=== PATIENT | male | born 1950 | race Caucasian/White ===

== ENCOUNTER 2024-08-06 08:59 | Outpatient (OUT) | payer OTHER, SELFPAY ==
--- OUTSIDE RECORDS SUMMARY | 2012-03-16 11:00 | XMS_ITS | Continuity of Care Document ---
Author Organization [facility] Address [address] [place] [address] Phone Care Team Providers Care Convalescent Sitter Name Role Phone Primitivo Lee Unavailable Unavailable Procedures Procedure Date FLU VACCINE, 3 YRS & >, IM OFFICE/OUTPATIENT VISIT, EST FLU VACCINE, 3 YRS & >, IM Advance Directives Directive Yes / No Effective Date File Name Resuscitation Not Answered N/A N/A Life Support Not Answered N/A N/A Intubation Not Answered N/A N/A Antibiotics Not Answered N/A N/A IV Fluid Support Not Answered N/A N/A Tube Feed Not Answered N/A N/A Other Directive N/A N/A WARNING:The information contained in this section is historical and is provided for information only and does not constitute a legal document or any assurance that the information is still accurate. Please verify the information with the minaya of the legal document before using it for clinical purposes. Encounters Encounter Description Practice Location Reason(s) For Visit Diagnoses Date Provider Providers Copied on Encounter OFFICE/OUTPATI ENT VISIT, EST [facility], [address], [place], [id number], [place] tel:[phone] [facility] Influenza Vaccine Debbie Fonseca. [address], [place], [id number], [place]. tel:[phone] Family History Family Member Type Diagnosis Age At Onset No Information Immunizations Vaccine Date Status Comments Flu (split) (3 yrs or older) administered Source: New Immunization Record Payers Payer name Insurance type Covered republican ID Authoriza tijazz(s) No Information Social History Type Description Quantity Date Captured Comments Alcohol Use Details Unknown Caffeine Use Details Unknown Tobacco Use Status No Information Smoking Status No Information Sex Male Sexual Orientation Straight or heterosexual Gender Identity Male Chief Complaint And Reason For Visit No Information Reason For Referral Reason For Referral No Information History Of Present Illness Encounter Date Complaint History Of Prese nt Illness No Information Functional Status Date Functional Assessmen t No Information Instructions Date Instruction Additional Infor mation No Information Assessments Type Assessment Date No Information Patient Care Teams Name Effective Dates (start - stop) Status Members No Information
--- OUTSIDE RECORDS SUMMARY | 2024-08-01 09:15 | XMS_ITS | Encounter Summary ---
Author Organization [facility] Address [address] [place] [address] Care Team Providers Care Maturity Checker Name Role Phone Arpan Seymour MD Primary Care Provider [phone] Arpan Seymour MD Unavailable Reason for Visit * Reason Comments Follow-up PAIN IN LEGS AND BUT T Encounter Details Date Type Department Care Team (Late st Contact Info) Description 08/01/2024 9:15 AM EDT Office Visit [facility] [address] [place] [address] Arpan Seymour MD [address] [place] [address] Degeneration of intervertebral disc of lumbar region with lower extremity pain (Primary Dx); Arthralgia, unspecified joint; Benign hypertension (CMS/HCC); Encounter for long-term current use of medication; Cerebrovascular disease, unspecified; Fatigue, unspecified type Social History Tobacco Use Types Packs/Day Years Used Date Smoking Tobacco: Former Cigarettes Smokeless Tobacco: Never Sex and Gender Information Value Date Recorded Sex Assigned at Not on file Legal Sex Male 7:20 PM EDT Gender Identity Not on file Sexual Orientation Not on file documented as of this encounter Last Filed Vital Signs Vital Sign Reading Time Taken Comments Blood Pressure 142/80 08/01/2024 9:22 AM EDT Pulse 85 08/01/2024 9:22 AM EDT Temperature 36.8 C (98.2 F) 08/01/2024 9:22 AM EDT Respiratory Rate 18 08/01/2024 9:22 AM EDT Oxygen Saturation 98% 08/01/2024 9:22 AM EDT Inhaled Oxygen Concentration - - Weight 84.8 kg (187 lb) 08/01/2024 9:22 AM EDT Height 175.3 cm (5' 9 ) 08/01/2024 9:22 AM EDT Body Mass Index 27.62 08/01/2024 9:22 AM EDT documented in this encounter Progress Notes * Arpan Seymour MD - 08/01/2024 10:00 AM EDTAssociated Problem(s): DDD (degenerative disc disease), lumbar Pain likely radicular and repeat x-ray. Treat with prednisone. May need PT. * Arpan Seymour MD - 08/01/2024 10:00 AM EDTAssociated Problem(s): Cerebrovascular disease, unspecified Continue lipitor. * Arpan Seymour MD - 08/01/2024 10:00 AM EDTAssociated Problem(s): Arthralgia Check CPK. * Arpan Seymour MD - 08/01/2024 10:00 AM EDTAssociated Problem(s): Benign hypertension (CMS/HCC) BP controlled and monitor PRN. Discussed DASH diet. * Arpan Seymour MD - 08/01/2024 9:15 AM EDT Images from the original note were not included. Subjective Patient ID: Reji Mcdonald is a 73 y.o. male who presents for Follow-up (PAIN IN LEGS AND BUTT). C/o pain in gluteal region and legs for months and getting worse. Pain in back legs and calves. Pain in gluteal region and radiates down legs. Denies low back pain. Pain with walking and standing. Pain worse after activity and at end of day. C/o cramping and ache but often numb and tingling. At times legs weak and hard to lift legs. Difficult to walk or climb stairs due to symptoms. Ultram with mild relief. Checking BP PRN and typically controlled. BP normal today. Taking medication daily and tolerating without side effects. On lipitor due to prior CVA. Review of Systems Constitutional: Negative for fatigue. Respiratory: Negative for cough, shortness of breath and wheezing. Cardiovascular: Negative for chest pain and palpitations. Gastrointestinal: Negative for abdominal pain, diarrhea, nausea and vomiting. Genitourinary: Negative for dysuria. Objective Physical Exam Constitutional: General: He is not in acute distress. Appearance: Normal appearance. HENT: Head: Normocephalic. Right Ear: Tympanic membrane and ear canal normal. Left Ear: Tympanic membrane and ear canal normal. Eyes: Extraocular Movements: Extraocular movements intact. Pupils: Pupils are equal, round, and reactive to light. Cardiovascular: Rate and Rhythm: Normal rate and regular rhythm. Heart sounds: No murmur heard. No friction rub. No gallop. Pulmonary: Breath sounds: Normal breath sounds. No wheezing, rhonchi or rales. Abdominal: General: Bowel sounds are normal. There is no distension. Palpations: Abdomen is soft. Tenderness: There is no abdominal tenderness. There is no guarding or rebound. Musculoskeletal: Left lower leg: No edema. Neurological: Mental Status: He is alert. Assessment/Plan Problem List Items Addressed This Visit Benign hypertension (CMS/HCC) BP controlled and monitor PRN. Discussed DASH diet. Relevant Orders Basic metabolic panel Cerebrovascular disease, unspecified Continue lipitor. Relevant Orders Lipid panel DDD (degenerative disc disease), lumbar - Primary Pain likely radicular and repeat x-ray. Treat with prednisone. May need PT. Relevant Medications predniSONE (Deltasone) 50 MG tablet Other Relevant Orders XR lumbar spine 2 or 3 views Encounter for long-term current use of medication Relevant Orders CBC and differential Hepatic function panel Magnesium Arthralgia Check CPK. Relevant Orders CK Other Visit Diagnoses Fatigue, unspecified type Relevant Orders TSH documented in this encounter Plan of Treatment Upcoming Encounters Date Type Department Care Team (Late st Contact Info) Description 09/17/2024 11:00 AM EDT Office Visit [facility] [address] [place] [address] Arpan Seymour MD [address] [place] [address] Scheduled Orders Name Type Priority Associated Diagnoses Orde r Schedule Basic metabolic panel Lab Routine Benign hypertension (CMS/HCC) Expected: 08/01/2024 (Approximate), Expires: 08/01/2025 CBC and differential Lab Routine Encounter for long-term current use of medication Expected: 08/01/2024 (Approximate), Expires: 08/01/2025 Hepatic function panel Lab Routine Encounter for long-term current use of medication Expected: 08/01/2024 (Approximate), Expires: 08/01/2025 Lipid panel Lab Routine Cerebrovascular disease, unspecified Expected: 08/01/2024 (Approximate), Expires: 08/01/2025 CK Lab Routine Arthralgia, unspecified joint Expected: 08/01/2024 (Approximate), Expires: 08/01/2025 TSH Lab Routine Fatigue, unspecified type Expected: 08/01/2024 (Approximate), Expires: 08/01/2025 Magnesium Lab Routine Encounter for long-term current use of medication Expected: 08/01/2024 (Approximate), Expires: 08/01/2025 XR lumbar spine 2 or 3 views Imaging Routine Degeneration of intervertebral disc of lumbar region with lower extremity pain Expected: 08/01/2024, Expires: 08/01/2025 documented as of this encounter Visit Diagnoses Diagnosis Degeneration of intervertebral disc of lumbar region with lower extremity pain- Primary Arthralgia, unspecified joint Benign hypertension (CMS/HCC) Essential hypertension, benign Encounter for long-term current use of medication Cerebrovascular disease, unspecified Fatigue, unspecified type documented in this encounter Care Teams Maturity Checker Relationship Specialty Start Date End Date Arpan Seymour MD [address] [place] [address] PCP - General Family Medicine 03/19/24 Arpan Seymour MD [address] [place] [address] PCP - Devoted 03/30/24 documented as of this encounter
--- OUTSIDE RECORDS SUMMARY | 2024-08-06 09:12 | XMS_ITS ---
Author Organization [facility] Address [address] [place], [place] [id number] Care Team Providers Care Oil Prospecting Observer Name Role Phone Arpan Seymour MD Primary Care Provider [phone] Nel Martinez MD Unavailable Unavailable Active Problems Problem Noted Date Diagnosed Date Prostate cancer 05/26/2021 Current Treatment and Therapy Plans No current plan information found. Past Treatment and Therapy Plans NON-CHEMO 1 Plan Name Start Date Discontinue Date Treatment Medications Discontinue Reason Plan Provider Cycles AMB LEUPROLIDE 45 D1 - Q175D 2 07/09/2024 leuprolide (ELIGARD) Other Juan Carlos Danielle MD 5 of 6 cycles started
--- OUTSIDE RECORDS SUMMARY | 2024-08-06 09:12 | XMS_ITS | Encounter Summary ---
Author Organization [facility] Address [address] [place] [address] Care Team Providers Care Digester Capper Name Role Phone Arpan Seymour MD Primary Care Provider [phone] Arpan Seymour MD Unavailable Encounter Details Date Type Department Care Team (Late st Contact Info) Description 07/29/2024 [facility]phone [facility] [address] [place] [address] Arpan Seymour MD [address] [place] [address] Social History Tobacco Use Types Packs/Day Years Used Date Smoking Tobacco: Former Cigarettes Smokeless Tobacco: Never Sex and Gender Information Value Date Recorded Sex Assigned at Not on file Legal Sex Male 7:20 PM EDT Gender Identity Not on file Sexual Orientation Not on file documented as of this encounter Miscellaneous Notes * Telephone Encounter - Arpan Seymour MD - 07/29/2024 3:31 PM EDT Try ultram and follow up as scheduled. * Telephone Encounter - Kate Back - 07/29/2024 9:17 AM EDT Patient is having pain in his legs from his arthritis and wondered if you would call something in for him till he sees you . an documented in this encounter Plan of Treatment Upcoming Encounters Date Type Department Care Team (Late st Contact Info) Description 09/17/2024 11:00 AM EDT Office Visit [facility] [address] [place] [address] Arpan Seymour MD [address] [place] [address] documented as of this encounter Visit Diagnoses Diagnosis Primary osteoarthritis of both knees- Primary documented in this encounter Care Teams Digester Capper Relationship Specialty Start Date End Date Arpan Seymour MD [address] [place] [phone] PCP - General Family Medicine 03/19/24 Arpan eSymour MD [address] [place] [address] PCP - Devoted 03/30/24 documented as of this encounter
--- OUTSIDE RECORDS SUMMARY | 2024-08-06 09:12 | XMS_ITS | Clinical Summary ---
Author Organization [facility] Address [address] [place] [address] Care Team Providers Care Market Risk Specialist Name Role Phone Arpan Seymour MD Primary Care Provider [phone] Arpan Seymour MD Unavailable Allergies No known active allergies Medications sildenafil (Viagra) 50 MG tabletIndications :Erectile dysfunction, unspecified erectile dysfunction type Take 1 tablet (50 mg) by mouth Daily as needed for erectile dysfunction 10 tablet 3 024 Active omeprazole (PriLOSEC) [address] capsuleIndication s:Gastroesophagea l reflux disease without esophagitis TAKE ONE CAPSULE BY MOUTH DAILY 90 capsule 3 024 Active clopidogrel (Plavix) 75 MG tabletIndications :Cerebrovascular disease, unspecified TAKE ONE TABLET BY MOUTH DAILY 90 tablet 3 024 Active lisinopril 40 MG tabletIndications :Benign hypertension (CMS/HCC) TAKE ONE TABLET BY MOUTH DAILY 90 tablet 3 024 Active atorvastatin (Lipitor) 20 MG tabletIndications :Dyslipidemia (CMS/HCC) TAKE 1 TABLET BY MOUTH AT BEDTIME 90 tablet 3 024 Active meloxicam (Mobic) 15 MG tabletIndications :Primary osteoarthritis of both knees Take 1 tablet (15 mg) by mouth Daily 30 tablet 3 025 Active amLODIPine (Norvasc) 10 MG tabletIndications :Benign hypertension (CMS/HCC) Take 1 tablet (10 mg) by mouth Daily 30 tablet 5 025 Active temazepam (Restoril) 30 MG capsuleIndication s:Primary insomnia TAKE 1 CAPSULE (30 MG) BY MOUTH NEEDED AT BEDTIME FOR SLEEP 30 capsule 2 025 Active predniSONE (Deltasone) 50 MG tabletIndications :Degeneration of intervertebral disc of lumbar region with lower extremity pain TAKE 1 TABLET (50 MG) BY MOUTH DAILY FOR 6 DAYS 6 tablet 025 2024 Active traMADol (Ultram) 50 MG tabletIndications :Primary osteoarthritis of both knees TAKE 1 TABLET (50 MG) BY MOUTH 4 (FOUR) TIMES A DAY NEEDED FOR SEVERE PAIN FOR UP TO 5 DAYS 20 tablet 025 2024 Active traMADol (Ultram) 50 MG tabletIndications :Primary osteoarthritis of both knees Take 1 tablet (50 mg) by mouth 4 (four) times a day as needed for severe pain for up to 5 days 20 tablet 025 2024 Discontinued predniSONE (Deltasone) 50 MG tabletIndications :Degeneration of intervertebral disc of lumbar region with lower extremity pain Take 1 tablet (50 mg) by mouth Daily for 6 days 6 tablet 025 2024 Discontinued Active Problems Problem Noted Date Diagnosed Date Arthralgia 08/01/2024 Assessment & Plan (08/01/2024 10:00 AM EDT): Check CPK. Encounter for long-term current use of medicatio n 03/19/2024 Benign hypertension 07/17/2023 Assessment & Plan (08/01/2024 10:00 AM EDT): BP controlled and monitor PRN. Discussed DASH diet. Assessment & Plan (03/19/2024 11:38 AM EST): BP elevated and increase norvasc. Need to monitor PRN. Discussed DASH diet. Cerebrovascular disease, unspecified 07/17/2023 Assessment & Plan (08/01/2024 10:00 AM EDT): Continue lipitor. Assessment & Plan (03/19/2024 11:38 AM EST): Continue medication. DDD (degenerative disc disease), lumbar 07/17/19 Assessment & Plan (08/01/2024 10:00 AM EDT): Pain likely radicular and repeat x-ray. Treat with prednisone. May need PT. Erectile dysfunction of organic origin Gastroesophageal reflux disease without esophagi tis 07/17/2023 Assessment & Plan (03/19/2024 11:39 AM EST): Symptoms controlled with omeprazole and continue. Persistent disorder of initiating or maintaining sleep 07/17/2023 Assessment & Plan (03/19/2024 11:39 AM EST): Sleeping well with restoril and continue. Primary osteoarthritis of both knees 07/17/2023 Assessment & Plan (03/19/2024 11:39 AM EST): Pain stable and continue mobic. Prostate cancer 07/17/2023 Assessment & Plan (03/19/2024 11:39 AM EST): Follow with specialists. Encounters Date Type Department Care Team Description 08/05/2024 Refill [facility] [address] [place] [phone] Arpan Seymour MD Degeneration of intervertebral disc of lumbar region with lower extremity pain; Primary osteoarthritis of both knees 08/01/2024 9:15 AM EDT Office Visit [facility] [address] [place] [phone] Arpan Seymour MD Degeneration of intervertebral disc of lumbar region with lower extremity pain (Primary Dx); Arthralgia, unspecified joint; Benign hypertension (CMS/HCC); Encounter for long-term current use of medication; Cerebrovascular disease, unspecified; Fatigue, unspecified type 08/01/2024 Bamboo flowsheet [facility] [address] [place] [phone] Arpan Seymour MD 07/29/2024 Telephone [facility] [address] [place] [phone] Arpan Seymour MD 06/28/2024 Refill [facility] [address] [place] [place] [address] Arpan Seymour MD Primary insomnia from Last 3 Months Social History Tobacco Use Types Packs/Day Years Used Date Smoking Tobacco: Former Cigarettes Smokeless Tobacco: Never Tobacco Cessation:Counseling Given: Not Answered Sex and Gender Information Value Date Recorded Sex Assigned at Not on file Legal Sex Male 7:20 PM EDT Gender Identity Not on file Sexual Orientation Not on file Last Filed Vital Signs Vital Sign Reading [...] Mass Index 27.62 08/01/2024 9:22 AM EDT Plan of Treatment Upcoming Encounters Date Type Department Care Team (Late st Contact Info) Description 09/17/2024 11:00 AM EDT Office Visit [facility] [address] [place] [address] Arpan Seymour MD [address] [place] [address] Health Maintenance Due Date Last Done Comments CT Colonography 1950 Colonoscopy 1950 Colorectal Cancer Screening 1950 FIT-DNA 1950 FIT 1950 FOBT 1950 Medicare Annual Wellness (AWV) 1950 Sigmoidoscopy 1950 Pneumococcal Vaccine: 65+ Years (1 of 1 - PCV) 002 Influenza Vaccine (Season Ended) 2024 Insurance [employer] Care Teams Market Risk Specialist Relationship Specialty Start Date End Date Arpan Seymour MD [address] [place] [phone] PCP - General Family Medicine 03/19/24 Arpan Seymour MD [address] [place] [phone] PCP - Devoted 03/30/24
--- OUTSIDE RECORDS SUMMARY | 2024-08-06 09:12 | XMS_ITS | Clinical Summary ---
Author Organization [facility] Address [address] [place], [place] [address] Care Team Providers Care Spinneret Person Name Role Phone Arpan Seymour MD Primary Care Provider Nel Martinez MD Unavailable Unavailable Allergies No known active allergies Medications amLODIPine (NORVASC) 5 mg tablet Take by mouth. 9 Active atorvastatin (LIPITOR) 20 mg tablet Take by mouth. 1 Active clopidogrel (PLAVIX) 75 mg tablet Take by mouth. 1 Active lisinopril (ZESTRIL, PRINIVIL) 40 mg tablet Take 40 mg by mouth once daily. 2 Active omeprazole (PRILOSEC) 20 mg capsule Take by mouth. 2 Active temazepam (RESTORIL) 30 mg cap TAKE 1 (ONE) CAPSULE BY MOUTH AT BEDTIME 2 Active sildenafil (VIAGRA) 50 mg tablet TAKE ONE TABLET 30 MINUTES PRIOR TO ANTICIPATED ACTIVITY 2 Active mecobalamin, vitamin B12, (B12 ACTIVE) 1,000 mcg chew Take by mouth. Active folic acid/multivit-m in/lutein (CENTRUM SILVER ORAL) Take by mouth. Activ e Ascorbic Acid 1,000 mg tablet Take 1,000 mg by mouth once daily. Active folic acid 800 mcg tablet Take by mouth. Acti ve cyclobenzaprine (FLEXERIL) 10 mg tablet TAKE 1 (ONE) TABLET BY MOUTH THREE TIMES DAILY, NEEDED 2 Active tamsulosin (FLOMAX) 0.4 mg TAKE 1 CAPSULE BY MOUTH DAILY AT BEDTIME. 30 capsule 5 5 Active Active Problems Problem Noted Date Diagnosed Date Prostate cancer 05/26/2021 Encounters Date Type Department Care Team Description 06/24/2024 Refill Radiation Oncology [address] [place] [address] [place] [address] Jonathan Clark MD Refill Request from Last 3 Months Immunizations Immunization Administration Dates Next Due tetanus diphtheria pertussis (Tdap) vaccine, age 7+ yr (ADACEL, BOOSTRIX) 02/16/2019 Social History Tobacco Use Types Packs/Day Years Used Date Smoking Tobacco: Former Cigarettes Smokeless Tobacco: Never Tobacco Cessation:Counseling Given: Not Answered Alcohol Use Standard Drinks/Week Comments Yes 0 (1 standard drink = 0.6 oz pur e alcohol) daily after work PHQ-2 Answer Date Recorded PHQ-2 score 0 06/08/2023 Sex and Gender Information Value Date Recorded Sex Assigned at Not on file Legal Sex Male 3:49 PM EDT Gender Identity Not on file Sexual Orientation Not on file Last Filed Vital Signs Vital Sign Reading Time Taken Comments Blood Pressure 156/78 06/08/2023 9:43 AM EDT Pulse 77 06/08/2023 9:43 AM EDT Temperature 36.3 C (97.4 F) 06/08/2023 9:43 AM EDT Respiratory Rate 18 06/08/2023 9:43 AM EDT Oxygen Saturation 97% 06/08/2023 9:43 AM EDT Inhaled Oxygen Concentration - - Weight 93.4 kg (205 lb 14.6 oz) 024 9:43 AM EDT Height 176 cm (5' 9.29 ) 05/26/2021 9:32 AM EDT Body Mass Index 30.15 05/26/2021 9:32 AM EDT Plan of Treatment Health Maintenance Due Date Last Done Comments Abdominal Aortic Aneurysm Screening 1950 Anxiety Screening 11/21/1969 Depression Screening 11/21/1969 Hepatitis C Screening 11/21/1969 CT Colonography 11/21/1996 Cologuard (FIT-DNA) 11/21/1996 Colonoscopy 11/21/1996 Colorectal Cancer Screening 11/21/1996 Fecal Occult Blood 11/21/1996 Sigmoidoscopy 11/21/1996 Pneumococcal Vaccine: 50+ (1 of 1 - PCV) 11/21/2001 Shingrix Vaccine (1 of 2) 11/21/2001 Diabetes Screening 04/27/2021 04/27/2018, 0 04/26/2018, 04/25/2018, Additional history exists Lipid Screening 04/26/2023 04/26/2018 Covid-19 Vaccine (1 - 2023-2 5 season) 2023 Advance Directive Discussion 02/28/2024 Influenza Vaccine (Season Ended) 2024 RSV Vaccine (1 - 1-dose 75+ series) 11/21/2026 DTaP,Tdap,Td Vaccine (2 - Td or Tdap) 02/16/2029 02/16/2019 [facility] Care Teams Spinneret Person Relationship Specialty Start Date End Date Arpan Seymour MD PCP - General Family Medicine 05/05/21 Nel Martinez MD [address] [place] [address] Referring Urology 05/05/21
--- OUTSIDE RECORDS SUMMARY | 2024-08-06 09:12 | XMS_ITS | Encounter Summary ---
Author Organization [facility] Address [address] [place] [address] Care Team Providers Care Real Estate Subagent Name Role Phone Arpan Seymour MD Primary Care Provider [phone] Arpan Seymour MD Unavailable Reason for Visit * Reason Comments Med Refill Encounter Details Date Type Department Care Team (Late st Contact Info) Description 08/05/2024 Refill [facility] [address] [place] [phone] Arpan Seymour MD [address] [place] [phone] Degeneration of intervertebral disc of lumbar region with lower extremity pain; Primary osteoarthritis of both knees Social History Tobacco Use Types Packs/Day Years Used Date Smoking Tobacco: Former Cigarettes Smokeless Tobacco: Never Sex and Gender Information Value Date Recorded Sex Assigned at Not on file Legal Sex Male 7:20 PM EDT Gender Identity Not on file Sexual Orientation Not on file documented as of this encounter Plan of Treatment Upcoming Encounters Date Type Department Care Team (Late st Contact Info) Description 09/17/2024 11:00 AM EDT Office Visit [facility] [address] [place] [phone] Arpan Seymour MD [address] [place] [address] documented as of this encounter Visit Diagnoses Diagnosis Degeneration of intervertebral disc of lumbar region with lower extremity pain Primary osteoarthritis of both knees documented in this encounter Care Teams Real Estate Subagent Relationship Specialty Start Date End Date Arpan Seymour MD [address] [place] [phone] PCP - General Family Medicine 03/19/24 Arpan Seymour MD [address] [place] [phone] PCP - Devoted 03/30/24 documented as of this encounter
--- OUTSIDE RECORDS SUMMARY | 2024-08-06 09:12 | XMS_ITS | Encounter Summary ---
Author Organization [facility] Address [address] [place] [address] Care Team Providers Care Dupligraph Operator Name Role Phone Arpan Seymour MD Primary Care Provider [phone] Arpan Seymour MD Unavailable Encounter Details Date Type Department Care Team (Late Contact Info) Description 08/01/2024 Bamboo flowsheet [facility] [address] [place] [phone] Arpan Seymour MD [address] [place] [phone] Social History Tobacco Use Types Packs/Day Years [...] 09/17/2024 11:00 AM EDT Office Visit [facility] [address] [place] [phone] Arpan Seymour MD [address] [place] [phone] documented as of this encounter Visit Diagnoses Not on filedocumented in this encounter Care Teams Dupligraph Operator Relationship Specialty Start Date End Date Arpan Seymour MD [address] [place] [phone] PCP - General Family Medicine 03/19/24 Arpan Seymour MD [address] [place] [phone] PCP - Devoted 03/30/24 documented as of this encounter
--- OUTSIDE RECORDS SUMMARY | 2024-08-06 09:12 | XMS_ITS | Clinical Summary ---
Author Organization [facility] Address [id number] [address] [place] [address] Care Team Providers Care Natural Sciences Department Chair Name Role Phone No Pcp, No Pcp Primary Care Provider Unavailabl e Allergies No known active allergies Medications hydroCHLOROthia zide (HYDRODIURIL) 25 mg tablet Take 25 mg by mouth daily. Active lisinopril (PRINIVIL,ZESTR IL) 40 mg tablet Take 40 mg by mouth daily. Active sildenafil (VIAGRA) 50 mg tablet Take 50 mg by mouth daily as needed for erectile dysfunction. Active VENTOLIN HFA 90 mcg/actuation inhaler 05/03/2018 Active temazepam (RESTORIL) 30 mg capsule 05/21/2018 Active oxaprozin (DAYPRO) 600 mg tablet Take 600 mg by mouth 2 (two) times a day as needed. 5 05/14/2018 Active amLODIPine (NORVASC) 5 mg tablet 05/10/2018 Active clopidogrel (PLAVIX) 75 mg tablet daily. Active Active Problems Problem Noted Date Diagnosed Date Lacunar stroke 05/30/2018 Former smoker 05/30/2018 Mixed hyperlipidemia 05/30/2018 Essential hypertension 05/30/2018 Stroke-like symptom 04/25/2018 Immunizations No known immunizations Social History Tobacco Use Types Packs/Day Years Used Date Smoking Tobacco: Former Cigarettes Q uit: 1996 Smokeless Tobacco: Never Alcohol Use Standard Drinks/Week Comments Yes 24 (1 standard drink = 0.6 oz pu re alcohol) case of beer per week PHQ-2 Answer Date Recorded Total Score 0 05/30/2018 Childcare Answer Date Recorded Childcare Unknown 08/02/2018 Employment Answer Date Recorded Employment Unknown 08/02/2018 Purpose - Life Answer Date Recorded Purpose and direction in life Unknown Sex and Gender Information Value Date Recorded Sex Assigned at Not on file Legal Sex Male 1:23 PM EST Gender Identity Not on file Sexual Orientation Not on file Last Filed Vital Signs Vital Sign Reading Time Taken Comments Blood Pressure 147/78 05/30/2018 2:32 PM EDT Pulse 71 05/30/2018 2:32 PM EDT Temperature 36.9 C (98.4 F) 04/27/2018 11:28 AM EST Respiratory Rate 16 04/27/2018 11:2 8 AM EST Oxygen Saturation 97% 04/27/2018 11: 28 AM EST Inhaled Oxygen Concentration - - Weight 91.6 kg (201 lb 14.4 oz) 05/30/2018 2:32 PM EDT Height 175.3 cm (5' 9.02 ) 05/30/2018 2:32 PM ED T Body Mass Index 29.8 05/30/2018 2:32 PM EDT Plan of Treatment Health Maintenance Due Date Last Done Comments Depression Screening 1962 Tobacco Screening 1962 Adult BMI Screening 11/21/1969 DTaP,Tdap and Td Vaccines (1 - Tdap) 11/21/1970 Zoster (Shingles) Vaccine (1 of 2) 11/21/2001 Abdominal Aortic Aneurysm (AAA) Screen 11/21/2016 Fall Risk Screening 11/21/2016 Influenza Vaccine 10/28/2024 Goals Goal Patient Goal Type Associated Problems Recent Progress Patient-Stated? Author <enter goal here> General Yes Amanda Chauhan, RN Note: Evaluation of progress towards goal: Pt stated goal is home with spouse for safe transition. PT is recommending home. - Amanda Chauhan RN 04/27/18 1:36 PM Medical Devices Not on file Insurance MEDICARE [employer] Advance Directives * Full Code (Latest Code Status on File) Date Activated Date Inactivated Comments 04/26/2018 8:47 PM 04/27/2018 6:23 PM Care Teams Natural Sciences Department Chair Relationship Specialty Start Date End Date No Pcp, [place] [address] PCP - General Family Medicine 04/25/18
--- NOTE | 2024-08-06 09:31 | XR_ITS ---
The [address] [address] Patient Name: MERCED GUSTAFSON MRN: [id number] date: 1950 Sex: M Assigned Patient Location: LAB Current Patient Location: LAB Accession/Order Number: [id number] Exam Date: 08/06/2024 10:11 Report Date: 08/06/2024 10:15 At the request of: JAGJIT RAMAN MD Procedure: XR lumbar spine 2-3V LUMBAR SPINE - 3 views COMPARISON: None CLINICAL DATA: Lower extremity pain, greatest at the calves over the past month. No injury. AP, lateral lumbar and lumbosacral views were obtained. There is osteopenia. There is minimal wedge deformity at L1 and L2 and slight concavity at superior endplate of L3. This may be chronic though there are no priors for correlation. There is approximately 7 mm of anterolisthesis of L5 on S1. A couple millimeters of anterolisthesis is also present at L4-5. There is multilevel disc space narrowing. Endplate sclerosis is seen at L4-5 with vacuum phenomenon. There is vacuum phenomenon at L3-4 . Endplate spurring is visualized throughout. There is prominent lower lumbar facet hypertrophy. Mild sclerosis is seen at the SI joints. There is atherosclerotic plaque at the aorta and iliac arteries. XR/XR lumbar spine 2-3V IMPRESSION: MULTILEVEL DEGENERATIVE CHANGES, DESCRIBED. NO DEFINITE ACUTE FINDINGS WITHIN LIMITS OF NO COMPARISON. Impression dictated by: Chelly Gonzalez M.D. 08/06/2024 10:15 AM Dictation Location: [place] [address] Electronically authenticated by: [id number] Y Date: 08/06/2024 10:15
[2024-08-06 09:42] LABS: Basophils Percent Auto 0.3 % (0.2-2.0); Eosinophils Absolute Auto 0.1 10^3/uL (0.0-0.7); Eosinophils Percent Auto 1.2 % (0.9-7.0); Hematocrit 36.9 % (42.0-54.0); Hemoglobin 12.4 g/dL (14.0-18.0); Immature Granulocytes Abs Auto 0.08 10^3/uL (0.00-0.03); Immature Granulocytes Pct Auto 0.8 % (0.0-0.5); Lymphocytes Percent Auto 20.7 % (20.5-60.0); Mean Corpuscular HGB Conc 33.6 g/dL (29.9-35.2); Mean Corpuscular Hemoglobin 31.2 pg (25.9-34.0); Mean Corpuscular Volume 92.9 fL (80.0-94.0); Mean Platelet Volume 10.2 fL (9.5-13.5); Monocytes Absolute Auto 0.8 10^3/uL (0.3-0.8); Monocytes Percent Auto 8.5 % (1.7-12.0); Neutrophils Absolute Auto 6.6 10^3/uL (1.4-6.5); Neutrophils Percent Auto 68.5 % (43.0-75.0); Platelet Count 182 10^3/uL (150-450); Red Blood Count 3.97 10^6/uL (4.70-6.10); Red Cell Distribution Width 13.3 % (11.0-15.0); White Blood Count 9.7 10^3/uL (4.0-11.0)
[2024-08-06 10:09] LABS: Alanine Aminotransferase 16 U/L (16-63); Albumin Globulin Ratio 1.5; Alkaline Phosphatase 46 U/L (46-116); Anion Gap 15.3; Aspartate Amino Transferase 27 U/L (15-37); BUN Creatinine Ratio 30.1; Bilirubin Direct 0.2 mg/dL (0.0-0.2); Bilirubin Total 1.2 mg/dL (0.2-1.0); Calcium 8.9 mg/dL (8.5-10.1); Carbon Dioxide 27.6 mmol/L (21.0-32.0); Chloride 102 mmol/L (98-107); Chol HDL Ratio 2.2; Cholesterol 131 mg/dL (<=200); Creatine Kinase 115 U/L (39-308); Estimated GFR (African America >60 (>=60 mL/min/1.73m^2); Estimated GFR (Non-African Ame >60 (>=60 mL/min/1.73m^2); Globulin 2.6 g/dL; Glucose 98 mg/dL (74-106); HDL Cholesterol 59 mg/dL (40-60); Magnesium 1.8 mg/dL (1.8-2.4); Potassium 3.9 mmol/L (3.5-5.1); Sodium 141 mmol/L (136-145); Thyroid Stimulating Hormone 1.168 uIU/mL (0.358-3.740); Total Protein 6.6 g/dL (6.4-8.2); Triglycerides 229 mg/dL (<=150); VLDL CHOLESTEROL 45.8 mg/dL
== END 2024-08-06 09:00 | disposition home or self-care (01) ==
LOC: LAB 09:07
PROVIDERS: PCP Family Medicine; Visit Provider Family Medicine
DX: R53.83 Other fatigue (principal); I10 Essential (primary) hypertension; Z79.899 Other long term (current) drug therapy; I67.9 Cerebrovascular disease, unspecified; M25.50 Pain in unspecified joint; M51.361 Other intervertebral disc degeneration, lumbar region with lower extremity pain only; M51.369 Other intervertebral disc degeneration, lumbar region without mention of lumbar back pain or lower extremity pain
CPT/HCPCS: 36415; 72100; 80048; 80061; 80076; 82550; 83735; 84443; 85025